=== PATIENT | male | born 1980 | race Two or more races ===

== ENCOUNTER 2017-03-12 19:48 | Emergency (ER) | payer SELFPAY ==
[~2017-03-12] VITALS: Ht 157.5 cm; Wt 63.5 kg
[2017-03-12] MEDS ORDERED: IV NORMAL SALINE 1000ML BAG 1,000 ML IV SCH (20:08)
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
[2017-03-12 20:23] LABS: BASO # 0.1 x10^3/uL (0.0-0.2); BASO % 1 % (0-3); EOS % 3 % (0-3); HEMATOCRIT 44.3 % (39.0-53.0); HEMOGLOBIN 15.4 g/dL (13.0-17.5); LYMPH % 40 % (24-48); MEAN CORPUSCULAR HEMOGLOBIN 32 pg (25-35); MEAN CORPUSCULAR HGB CONC 35 g/dL (31-37); MEAN CORPUSCULAR VOLUME 92 fL (79-100); MONO % 6 % (0-9); NEUT % 51 % (31-73); PLATELET COUNT 242 x10^3/uL (140-400); RED BLOOD COUNT 4.81 x10^6/uL (4.30-5.70); RED CELL DISTRIBUTION WIDTH 13.3 % (11.5-14.5); WHITE BLOOD COUNT 7.6 x10^3/uL (4.0-11.0)
[2017-03-12 20:33] LABS: BILIRUBIN,URINE NEGATIVE (NEG); GLUCOSE,URINE NEGATIVE (NEG); NITRITE,URINE NEGATIVE (NEG); PH,URINE 5.5; PROTEIN,URINE NEGATIVE (NEG-TRACE); UROBILINOGEN,URINE 0.2 mg/dL (0.2 mg/dL)
[2017-03-12 20:37] LABS: CALCIUM 8.6 mg/dL (8.5-10.1); CREATININE 0.9 mg/dL (0.7-1.3); POTASSIUM 3.8 mmol/L (3.5-5.1)
[2017-03-12 20:40] LABS: BARBITURATES NEG (NEG); BENZODIAZEPINES NEG (NEG); CANNABINOIDS POS (NEG); COCAINE NEG (NEG); METHADONE NEG (NEG); OPIATES NEG (NEG); PHENCYCLIDINE NEG (NEG)
[2017-03-12 20:41] LABS: BACTERIA,URINE 0 /HPF (0-FEW); RBC,URINE 0 /HPF (0-2); SQUAMOUS EPITHELIAL CELL,UR OCC /LPF
[2017-03-12 20:41] LABS: ETHANOL 18 mg/dL (0-10)
[2017-03-12 20:42] LABS: ALBUMIN 3.5 g/dL (3.4-5.0); TOTAL BILIRUBIN 0.2 mg/dL (0.2-1.0); TOTAL PROTEIN 7.1 g/dL (6.4-8.2)
[2017-03-12 21:38] VITALS: BP 139/94
--- NOTE | 2017-03-12 22:30 | ACF ---
Admission Forms Criteria [facility] Clinical Indications for Admission to Inpatient Care (Place 'X' for any and all applicable criteria): Hospital admission is needed for appropriate care of the patient because of ANY ONE of the following[A] (3)(4)(5): [ ]I. Inpatient behavioral care is needed as indicated by ALL of the following: [ ]a) Treatment is needed because of patient risk due to ANY ONE of the following: [ ]i) Imminent danger to self due to ANY ONE of the following ( 7)(8): [ ]1) Imminent risk for recurrence of a suicide attempt or act of serious self-harm as indicated by ALL of the following: [ ]A. Very recent suicide attempt or deliberate act of serious self-harm [ ]B. Absence of sufficient relief of the action' s precipitants [ ]2) Current plan for suicide or serious self-harm [ ]3) Persistent thoughts of suicide or serious self- harm that cannot be adequately monitored at a lower level of care because of ANY ONE of the following: [ ]A. Insufficient behavioral care provider availability [ ]B. Inadequate patient support system [ ]C. Patient characteristics such as high impulsivity or unreliability [ ]D. Ruminative flooding; uncontrollable and overwhelming profusion of negative thoughts [ ]E. Frantic hopelessness; fatalistic conviction that life will not improve along with oppressive sense of entrapment and doom [ ]F. Active substance use disorder is present [ ]G. Ready access to lethal means is present [ ]ii) Imminent danger to others due to ANY ONE of the following( 10)(11): [ ]1) Imminent risk for recurrence of an attempt to seriously harm another as indicated by ALL of the following: [ ]A. Very recent attempt to seriously harm another [ ]B. Absence of sufficient relief of the action' s precipitants [ ]2) Current plan for homicide or seriously harming another [ ]3) Command auditory hallucination for serious self harm to self or others [ ]4) Persistent thoughts of homicide or seriously harming another that cannot be adequately monitored at a lower level of care because of ANY ONE of the following: [ ]A. Insufficient behavioral care provider availability [ ]B. Inadequate patient support system [ ]C. Patient characteristics such as high impulsivity or unreliability [ ]D. Active substance use disorder is present [ ]E. Ready access to lethal means is present [ ]iii) Behavioral health disorder is present with ALL of the following: (12)(16)(17)(18): [ ]1) Severe psychiatric or behavioral symptoms are present , including ANY ONE of the following: [ ]A. Hallucinations that are very bothersome to patient or are associated with severe pressure to respond to voices(17)(18) [ ]B. Delusions that are very bothersome to patient or are associated with severe pressure to act on beliefs(17)(18) [ ]C. Disorganized speech that is almost impossible to follow(17)(18) [ ]D. Motor behavior that is almost constantly abnormal or bizarre or catatonic(17)(18) [ ]E. Severe negative symptoms (eg, severe decrease in facial expression or self-initiated behavior)(17)(18) [ ]F. Severe sofía (eg, daily periods of extensive mood elevation or irritability)(19)(20)(21)(22) [ ]G. Severe depression (eg, daily symptoms of deep hopelessness)[C] [ ]H. Severe anxiety[D] [ ]I. Severe comorbid substance use disorder with inability to control use, intense withdrawal symptoms, or extreme negative impact on primary psychiatric disorder(2)(7)(25) [ ]J. Severe impairment in cognition, memory, judgment, or impulse control(26)(27) [ ]K. Severe impairment in behavior, including physical or verbal aggression, disruptive behaviors, or internal or external anger manifestations (eg, rumination or outbursts)(28) [ ]L. Other psychiatric symptoms which are acute or represent worsening over baseline (eg, hyperactivity, agitation, obsessions, or compulsions)(29)(30)(31) [ ]2) Severe dysfunction in daily living is present as indicated by ANY ONE of the following: [ ]A. Extreme deterioration in social interactions ( eg, threatening behaviors with little or no provocation) [ ]B. Complete withdrawal from all social interactions [ ]C. Complete neglect of self-care with associated impairment in physical status [ ]D. Extreme disruption in vegetative function (eg , life-sustaining functions such as eating) [ ]E. Complete inability to maintain any appropriate aspect of personal responsibility in any adult roles (eg, occupational, parental) [ ]b) Treatment situation and needs are appropriate for level as indicated by ANY ONE of the following(13)(16): [ ]i) Patient unwilling to participate voluntarily and requires treatment (eg, legal commitment) in an involuntary unit [ ]ii) Voluntary treatment at lower level not feasible (e.g., very short-term crisis intervention or residential care unavailable or unacceptable for patient condition) [ ]iii) Need for physical restraint, seclusion, or other involuntary control (e.g., actively violent patient and adequate clinical rapport cannot be established to control violence) (25) [ ]iv) [id number] medical or nursing care to address symptoms and initiate intervention is required; specific need has been identified [ ]II. Delirium as described by ANY ONE of the following (26)(27)(28): [ ]a) Delirium due to alcohol or sedative [B] withdrawal (16)(29)(30)( 31) [ ]b) Delirium of uncertain etiology that has not responded to appropriate treatment in emergency department or urgent care setting (32)(33) [ ]c) Delirium that prevents performance of a life-sustaining function (eg, feeding or hydrating oneself) (9) [ ]III. Administration of a somatic treatment that requires sgemsh-[id number] medical or nursing care because of a potential adverse physical effect or medical comorbidity(7) [ ]IV. Behavioral Health condition, symptom, or finding for which emergency and observation care have failed or are not considered appropriate The original [facility] content created by [employer] has been revised. The portions of the content which have been revised are identified through the use of italic text or in bold, and [facility] has neither reviewed nor approved the modified material. All other unmodified content is copyright [facility] [employer] [employer]. Please see references footnoted in the original [employer] [facility] edition 2016 KEVIN SANCHEZ Mar 12, 2017 22:29
--- NOTE | 2017-03-13 06:34 | EKG ---
[facility] [address] [place] [address] Test Date: 2017-03-12 Test Time: 20:22:38 Pat Name: VICTORIA HILL Department: Room: Gender: M [employer] Machine Operator: TW EMT : 1980 Requested By: NEHA JUAREZ Order Number: [id number] Reading MD: Jay Jay Knight Measurements Intervals [place] Rate: 90 P: 39 IN: 134 QRS: -19 QRSD: 96 T: 33 QT: 328 QTc: 405 Interpretive Statements SINUS RHYTHM Electronically Signed On 03-13-2017 8:37:48 CDT by Jay Jay Knight
== END 2017-03-12 22:50 | disposition home or self-care (01) ==
LOC: ER 19:48
DX: F32.9 Major depressive disorder, single episode, unspecified (principal); F10.10 Alcohol abuse, uncomplicated; F12.10 Cannabis abuse, uncomplicated; F15.10 Other stimulant abuse, uncomplicated; Z87.820 Personal history of traumatic brain injury
CPT/HCPCS: 36415; 80053; 80305; 80320; 81001; 85027; 93005; 96360; 99285; G6038; J7030; G0480; G0481; 80196

== ENCOUNTER 2021-07-06 03:52 | Emergency (ER) | payer SELFPAY ==
[~2021-07-06] VITALS: Ht 149.9 cm; Wt 72.7 kg
[2021-07-06 04:20] LABS: BASO % 1 % (0-3); EOS % 1 % (0-3); HEMATOCRIT 44.9 % (39.0-53.0); HEMOGLOBIN 15.5 g/dL (13.0-17.5); LYMPH # 1.1 x10^3/uL (1.0-4.8); LYMPH % 22 % (24-48); MEAN CORPUSCULAR HEMOGLOBIN 32 pg (25-35); MEAN CORPUSCULAR HGB CONC 35 g/dL (31-37); MEAN CORPUSCULAR VOLUME 92 fL (79-100); MONO # 0.8 x10^3/uL (0.0-1.1); MONO % 16 % (0-9); NEUT # 3.1 x10^3/uL (1.8-7.7); NEUT % 61 % (31-73); PLATELET COUNT 209 x10^3/uL (140-400); RED BLOOD COUNT 4.87 x10^6/uL (4.30-5.70); WHITE BLOOD COUNT 5.1 x10^3/uL (4.0-11.0)
[2021-07-06 04:26] LABS: BARBITURATES NEG (NEG); BENZODIAZEPINES NEG (NEG); CANNABINOIDS POS (NEG); COCAINE NEG (NEG); METHADONE NEG (NEG); OPIATES NEG (NEG); PHENCYCLIDINE NEG (NEG)
[2021-07-06 04:29] LABS: CALCIUM 8.8 mg/dL (8.5-10.1); GFR 83.2
[2021-07-06 04:30] LABS: AMPHETAMINE/METHAMPHETAMINE NEG (NEG)
[2021-07-06 04:35] LABS: ALBUMIN 4.1 g/dL (3.4-5.0); TOTAL BILIRUBIN 0.1 mg/dL (0.2-1.0); TOTAL PROTEIN 8.1 g/dL (6.4-8.2)
--- NOTE | 2021-07-06 04:36 | PHYS DOC ---
Past Medical History Past Medical History: No Pertinent History Additional Past Medical Histor: TBI, BIPOLAR,PTSD (SANDRA RYAN DO) Past Surgical History: Other Additional Past Surgical Histo: traumatic brain (SANDRA RYAN DO) Smoking Status: Never Smoker Alcohol Use: Heavy Drug Use: Marijuana, Methamphetamine (SANDRA RYAN DO) General Adult EDM: Chief Complaint: SUICDAL IDEATION HPI: HPI: Patient is a 40 year old male who is a daily drinker presents with a chief complaint of suicidal ideation. Patient states he has been suicidal for 3 hours. States specific plan is to jump out in front of vehicular traffic. Patient states he is a daily drinker and did drink tonight. Patient states previous suicide attempts with psychiatric hospitalization. On exam patient is alert and oriented x4. He is clinically sober. Patient denies HI. (SANDRA RYAN DO) Review of Systems: Review of Systems: Constitutional: Denies fever or chills. [] Eyes: Denies change in visual acuity. [] HENT: Denies nasal congestion or sore throat. [] Respiratory: Denies cough or shortness of breath. [] Cardiovascular: Denies chest pain or edema. [] GI: Denies abdominal pain, nausea, vomiting, bloody stools or diarrhea. [] : Denies dysuria. [] Musculoskeletal: Denies back pain or joint pain. [] Integument: Denies rash. [] Neurologic: Denies headache, focal weakness or sensory changes. [] Endocrine: Denies polyuria or polydipsia. [] Lymphatic: Denies swollen glands. [] Psychiatric: Denies depression or anxiety. [Positive suicidal ideation denies homicidal ideation] (SANDRA RYAN DO) Heart Score: C/O Chest Pain: N/A Risk Factors: Risk Factors: DM, Current or recent (<one month) smoker, HTN, HLP, family history of CAD, obesity. Risk Scores: Score 0 - 3: 2.5% MACE over next 6 weeks - Discharge Home Score 4 - 6: 20.3% MACE over next 6 weeks - Admit for Clinical Observation Score 7 - 10: 72.7% MACE over next 6 weeks - Early Invasive Strategies (SHELBYSANDRA Lyman ) Allergies: Allergies: Allergies Coded Allergies Type Severity Reaction Last Updated Verified No Known Drug Allergies 03/12/17 No (SANDRA RYAN DO) Physical Exam: PE: General: alert, no acute distress. Skin: warm, dry and intact, no erythema, no rash. HENT: bilateral external ears normal, oropharynx moist, nose normal. Head:: Normocephalic, atraumatic. Neck: Trachea midline. Eyes: EOMI, Normal conjunctiva, No drainage CARDIOVASCULAR: Regular rate and rhythm RESPIRATORY: No respiratory distress Back: Full range of motion. MUSCULOSKELETAL: Full range of motion of bilateral upper and lower extremities. GASTROINTESTINAL: Abdomen soft without rebound or guarding. NEUROLOGICAL: Alert and noted to person, place and time. No neurological deficits observed Psychiatric: Cooperative. Suicidal ideation (SANDRA RYAN DO) Current Patient Data: Labs: Laboratory Tests Test 07/06/21 04:10 07/06/21 04:11 White Blood Count 5.1 x10^3/uL (4.0-11.0) Red Blood Count 4.87 x10^6/uL (4.30-5.70) Hemoglobin 15.5 g/dL (13.0-17.5) Hematocrit 44.9 % (39.0-53.0) Mean Corpuscular Volume 92 fL (79-100) Mean Corpuscular Hemoglobin 32 pg (25-35) Mean Corpuscular Hemoglobin Concent 35 g/dL (31-37) Red Cell Distribution Width 13.0 % (11.5-14.5) Platelet Count 209 x10^3/uL (140-400) Neutrophils (%) (Auto) 61 % (31-73) Lymphocytes (%) (Auto) 22 % (24-48) L Monocytes (%) (Auto) 16 % (0-9) H Eosinophils (%) (Auto) 1 % (0-3) Basophils (%) (Auto) 1 % (0-3) Neutrophils # (Auto) 3.1 x10^3/uL (1.8-7.7) Lymphocytes # (Auto) 1.1 x10^3/uL (1.0-4.8) Monocytes # (Auto) 0.8 x10^3/uL (0.0-1.1) Eosinophils # (Auto) 0.0 x10^3/uL (0.0-0.7) Basophils # (Auto) 0.0 x10^3/uL (0.0-0.2) Sodium Level 140 mmol/L (136-145) Potassium Level 4.0 mmol/L (3.5-5.1) Chloride Level 104 mmol/L (98-107) Carbon Dioxide Level 28 mmol/L (21-32) Anion Gap 8 (6-14) Blood Urea Nitrogen 8 mg/dL (8-26) Creatinine 1.0 mg/dL (0.7-1.3) Estimated GFR (Cockcroft-Gault) 83.2 BUN/Creatinine Ratio 8 (6-20) Glucose Level 95 mg/dL (70-99) Calcium Level 8.8 mg/dL (8.5-10.1) Total Bilirubin Pending Aspartate Amino Transferase (AST) Pending Alanine Aminotransferase (ALT) Pending Alkaline Phosphatase Pending Total Protein Pending Albumin Pending Albumin/Globulin Ratio Pending Ethyl Alcohol Level 206 mg/dL (0-10) H Urine Opiates Screen Neg (NEG) Urine Methadone Screen Neg (NEG) Urine Barbiturates Neg (NEG) Urine Phencyclidine Screen Neg (NEG) Urine Amphetamine/Methamphetamine Neg (NEG) Urine Benzodiazepines Screen Neg (NEG) Urine Cocaine Screen Neg (NEG) Urine Cannabinoids Screen Pos (NEG) Urine Ethyl Alcohol Pos (NEG) Laboratory Tests 07/06/21 04:10 Laboratory Tests 07/06/21 04:10 Vital Signs: Vital Signs Date Time Temp Pulse Resp B/P (MAP) Pulse Ox O2 Delivery O2 Flow Rate FiO2 07/06/21 03:53 98.3 97 16 125/75 (109) 97 Room Air 98.3 (SANDRA RYAN DO) EKG: EKG: [] (SANDRA RYAN DO) Radiology/Procedures: Radiology/Procedures: [] (SANDRA RYAN DO) Course & Med Decision Making: Course & Med Decision Making Pertinent Labs and Imaging studies reviewed. (See chart for details) [] Patient was evaluated for chief complaint work-up consisted of laboratory analysis. Psychiatric assessment team consulted. 0600hrs--patient signed out to Dr Beard. Disposition pending labs and PAT assessment. (SANDRA RYAN DO) Course & Med Decision Making Concern for suicidal ideations in the setting of alcohol intoxication and marijuana use. Pt observed in ed for 4 hours. Upon sober reevaluation pt states "I drank too much and knew I was thinking poorly so I called 911." States he has been noncompliant with his Zoloft for the past month but has refills at the pharmacy, "I will refill them today." States he no longer wants to harm himself or jump out in traffic, that he has kids he wants to live for. States "I was too drunk." Patient was assessed by pat team and was referred to [facility] and [facility], with a safety plan. I encouraged patient to call 911 immediate ly if patient should have any further/recurring suicidal thoughts or plans, and patient states " no definitely." Patient has decision-making capacity with a steady gait. Will discharge home with strict ED return precautions were given for suicidal thoughts or plans or hallucinations. Encouraged urgent outpatient follow-up with PMD and psychiatry. Life-threatening processes were considered but are low suspicion at this time, given history, physical exam and ED workup. Pt was educated on all prescription medications and adverse effects. All patient's questions were answered and pt was stable at time of discharge. Life/limb-threatening differential includes but is not limited to, end organ damage/sepsis, trauma/abuse/neglect, neurologic deficit, alcohol/drug ingestion, toxidrome, suicidal/homicidal ideations plans or attempts, psychosis or mental illness resulting in self neglect and inability to care for self. I have spoken with the patient and/or caregivers. I explained the patient's condition, diagnoses and treatment plan based on the information available to me at this time. I have answered the patient and/or caregiver's questions and addressed any concerns. The patient and/or caregivers have a good understanding of patient's diagnosis, condition and treatment plan as can be expected at this point. Vital signs have been stable. Patient's condition is stable and appr opriate for discharge from the emergency department. Patient will pursue further outpatient evaluation with primary care physician or other designated or consulting physician as outlined in the discharge instructions. The patient and/or caregivers are agreeable to this plan of care and follow-up instructions have been explained in detail. The patient and/or caregivers have received these instructions in written form and have expressed an understanding of the discharge instructions. The patient and/or caregivers are aware that any significant change of condition or worsening of symptoms sh ould prompt immediate return to this or the closest emergency department or call to 911. (VOCYDNEY SHANNON Disclaimer: Vickie Disclaimer: This electronic medical record was generated, in whole or in part, using a voice recognition dictation system. (SANDRA RYAN DO) Departure Departure Impression: Primary Impression: Alcohol intoxication Additional Impression: Suicidal thoughts Disposition: 01 HOME / SELF CARE / HOMELESS Condition: STABLE Referrals: NO PCP (PCP) Follow-up with your primary care physician in 24 to 48 hours OR FOLLOW UP WITH FAMILY MEDICINE: [address], [address] [place] [address] Patient Instructions: Alcohol Intoxication, Suicidal Feelings, How to Help Yourself Additional Instructions: FOLLOW UP WITH PSYCHIATRY: FOR DEFINITIVE MANAGEMENT Dr. Marcelo West Psychiatry Specialist [address] [place], [place] [address] [facility] AND FOR SUBSTANCE ABUSE MANAGEMENT [address] [place] [address] 24-hour crisis line: [phone] EMERGENCY DEPARTMENT GENERAL DISCHARGE INSTRUCTIONS Thank you for coming to [facility] Emergency Department (ED) today and trusting us with you care. We trust that you had a positive experience in our Emergency Department. If you wish to speak to the department management, you may call the Director at [phone]. YOUR FOLLOW UP INSTRUCTIONS ARE FOLLOWS: 1. Do you have a private Doctor? If you do not have a private doctor, please ask for a resource list of physicians or clinics that may be able to assist you with follow up care. ADDITIONAL INSTRUCTIONS AND INFORMATION: 1. Your care today has been supervised by a physician who is specially trained in emergency care. Many problems require more than one evaluation for a complete diagnosis and treatment. We recommend that you schedule your follow up appointment as re commended to ensure complete treatment of you illness or injury. If you are unable to obtain follow up care and continue to have a problem, or if your condition worsens, we recommend that you return to the ED. 2. We are not able to safely determine your condition over the phone nor are we able to give sound medical advice over the phone. For these safety reasons, if you call for medical advice we will ask you to come to the ED for further evaluation. 3. If you have any questions regarding these discharge instructions please call the ED at [phone]. SAFETY INFORMATION: In the interest of safety, wellness, and injury prevention; we encourage you to wear your sealbelt, if you smoke; quite smoking, and we encourage family to use a protective helmet for bicycling and other sporting events that present an increased risk for head injury. IF YOUR SYMPTOMS WORSEN OR NEW SYMPTOMS DEVELOP, OR YOU HAVE CONCERNS ABOUT YOUR CONDITION; OR IF YOUR CONDITION WORSENS WHILE YOU ARE WAITING FOR YOUR FOLLOW UP APPOINTMENT; EITHER CONTACT YOUR PRIMARY CARE DOCTOR, THE PHYSICIAN WHOSE NAME AND NUMBER YOU WERE GIVEN, OR RETURN TO THE ED IMMEDIATELY. SANDRA RYAN I DO Jul 06, 2021 04:36 CYDNEY BEARD DO Jul 06, 2021 08:00
[2021-07-06 08:15] VITALS: BP 128/69
== END 2021-07-06 09:11 | disposition home or self-care (01) ==
LOC: ER 03:52
DX: R45.851 Suicidal ideations (principal); F10.229 Alcohol dependence with intoxication, unspecified; Y90.7 Blood alcohol level of 200-239 mg/100 ml; F31.9 Bipolar disorder, unspecified; F43.10 Post-traumatic stress disorder, unspecified
CPT/HCPCS: 36415; 80053; 80307; 85025; 99285; G0480

== ENCOUNTER 2021-09-29 18:46 | Emergency (ER) | payer SELFPAY | END 2021-09-29 19:30 | disposition left against medical advice (07) | LOC: ER 18:46 | DX: R11.2 Nausea with vomiting, unspecified (principal); R19.7 Diarrhea, unspecified; R53.1 Weakness; Z53.21 Procedure and treatment not carried out due to patient leaving prior to being seen by health care provider ==

== ENCOUNTER 2022-02-01 23:20 | Emergency (ER) | payer SELFPAY ==
[~2022-02-01] VITALS: Ht 149.9 cm; Wt 65.5 kg
--- NOTE | 2022-02-01 23:37 | PHYS DOC ---
Past Medical History Past Medical History: No Pertinent History Additional Past Medical Histor: TBI, BIPOLAR,PTSD Past Surgical History: Other Additional Past Surgical Histo: traumatic brain Smoking Status: Never Smoker Alcohol Use: Heavy Drug Use: Marijuana, Methamphetamine General Adult EDM: Chief Complaint: SUICDAL IDEATION HPI: HPI: Patient is a 41 year old male who presents here with report of suicidal thoughts. He admits to drinking alcohol, he admits to the frequent use of cocaine, methamphetamine, LSD and marijuana. He normally lives in [facility], but he apparently walked here to [facility] in [facility]. He previously had been in with a friend, but he is now homeless. He does not divulge any details regarding why this is occurred. He is requesting food and drink. He denies any physical pain or discomfort. He denies headache, dizziness, chest pain, dyspnea, abdominal pain, nausea, vomiting. He denies headache, cough, congestion. He has been fully vaccinated against COVID-19. He denies fevers or chills. He denies homicidal ideation. He denies hallucinations. He reports that he has been using drugs and alcohol, almost daily, for many years. He reports being previously hospitalized for suicidal thoughts. He is unable to articulate where he may have been hospitalized or treated for these issues. He reports that he is supposed to take multiple psychotropic medications, but he has not been taking these for many months. He does not currently have a primary care physician or psychiatrist. Review of Systems: Review of Systems: Constitutional: Denies fever or chills. [] HENT: Denies nasal congestion or sore throat. [] Respiratory: Denies cough or shortness of breath. [] Cardiovascular: Denies chest pain or edema. [] GI: Denies abdominal pain, nausea, vomiting : Denies dysuria. [] Musculoskeletal: Denies back pain or joint pain. [] Integument: Denies rash. [] Neurologic: Denies headache, focal weakness or sensory changes. [] Psychiatric: Depression, polysubstance use, suicidal ideation. Denies homicidal ideation. Heart Score: C/O Chest Pain: No Risk Factors: Risk Factors: DM, Current or recent (<one month) smoker, HTN, HLP, family history of CAD, obesity. Risk Scores: Score 0 - 3: 2.5% MACE over next 6 weeks - Discharge Home Score 4 - 6: 20.3% MACE over next 6 weeks - Admit for Clinical Observation Score 7 - 10: 72.7% MACE over next 6 weeks - Early Invasive Strategies Allergies: Allergies: Allergies Coded Allergies Type Severity Reaction Last Updated Verified No Known Drug Allergies 03/12/17 No Physical Exam: PE: Constitutional: Well developed, well nourished, no acute distress, non-toxic appearance. Mildly disheveled. He is not ill-appearing. HENT: Normocephalic, atraumatic, oropharynx is patent and clear. Mucous membranes are moist. TMs are clear bilaterally. Nares are patent. Eyes: PERRL, EOMI, conjunctiva normal, no discharge. No scleral icterus. No evidence of periorbital or orbital trauma or injury. Neck: Normal range of motion, no tenderness, supple, no stridor. Trachea is midline. Cardiovascular:Heart rate regular rhythm, +2 radial pulses bilaterally Lungs & Thorax: Lungs are clear to auscultation bilaterally without rales, rhonchi or wheezes Abdomen: Abdomen is soft, nondistended, nontender to palpation. Skin: Warm, dry, no erythema, no rash. No open wounds. No laceration. No jaundice. Back: No tenderness, no CVA tenderness. Full painless range of motion. No deformity or step-offs Extremities: No tenderness, no cyanosis, no clubbing, ROM intact, no edema. No limb deformity. No calf tenderness. Neurologic: Alert and oriented X 3, normal motor function, normal sensory function, no focal deficits noted. Ambulatory with a steady gait. Psychologic: Affect is somewhat flat, he is cooperative, he smiles and is relatively jovial, denies homicidal ideation. Alludes to suicidal ideation. EKG: EKG: [] Radiology/Procedures: Radiology/Procedures: [] Course & Med Decision Making: Course & Med Decision Making Pertinent Labs and Imaging studies reviewed. (See chart for details) The patient was seen and evaluated by PAT team. [facility] was contacted, he is accepted there for drug and alcohol use and mental health evaluation. The patient is comfortable with the plan for transfer there. He is medically stable at this time. He has been calm and cooperative. He is given food and drink. Arrangements for transfer are made. [employer] Disclaimer: Vickie Disclaimer: This electronic medical record was generated, in whole or in part, using a voice recognition dictation system. Departure Departure Impression: Primary Impression: Polysubstance abuse Additional Impressions: Suicidal thoughts Mood disorder Disposition: [facility] ([facility]) Condition: STABLE Referrals: NO PCP (PCP) Patient Instructions: Depression, Adult, Mood Disorders, Polysubstance Abuse Additional Instructions: Please go to [facility] and participate in their drug and alcohol rehabilitation services and mental health services. Return to the ER if you are acutely injured, sustained any trauma, develop chest pain, shortness of breath, Alphonso pain, vomiting, weakness, or for any other concerns. PRANAV MORRIS DO Feb 01, 2022 23:37
[2022-02-02 00:05] LABS: BILIRUBIN,URINE NEGATIVE (NEG); CLARITY,URINE CLEAR; COLOR,URINE YELLOW; NITRITE,URINE NEGATIVE (NEG); PH,URINE 6.5 (<5.0-8.0); PROTEIN,URINE NEGATIVE (NEG-TRACE); UROBILINOGEN,URINE 0.2 mg/dL (0.2 mg/dL)
[2022-02-02 00:06] LABS: BACTERIA,URINE 0 /HPF (0-FEW); RBC,URINE 0 /HPF (0-2); WBC,URINE 0 /HPF (0-4)
[2022-02-02 00:10] LABS: AMPHETAMINE/METHAMPHETAMINE POS (NEG); BARBITURATES NEG (NEG); BENZODIAZEPINES NEG (NEG); CANNABINOIDS POS (NEG); COCAINE NEG (NEG); METHADONE NEG (NEG); OPIATES NEG (NEG); PHENCYCLIDINE NEG (NEG)
[2022-02-02 00:25] LABS: BASO # 0.1 x10^3/uL (0.0-0.2); BASO % 1 % (0-3); EOS # 0.1 x10^3/uL (0.0-0.7); EOS % 2 % (0-3); HEMATOCRIT 42.9 % (39.0-53.0); HEMOGLOBIN 14.3 g/dL (13.0-17.5); LYMPH # 2.4 x10^3/uL (1.0-4.8); LYMPH % 40 % (24-48); MEAN CORPUSCULAR HEMOGLOBIN 31 pg (25-35); MEAN CORPUSCULAR HGB CONC 33 g/dL (31-37); MEAN CORPUSCULAR VOLUME 94 fL (79-100); MONO # 0.5 x10^3/uL (0.0-1.1); MONO % 8 % (0-9); NEUT # 2.9 x10^3/uL (1.8-7.7); NEUT % 49 % (31-73); PLATELET COUNT 232 x10^3/uL (140-400); RED BLOOD COUNT 4.57 x10^6/uL (4.30-5.70)
[2022-02-02 00:35] LABS: CALCIUM 8.3 mg/dL (8.5-10.1); GFR 82.8; POTASSIUM 3.7 mmol/L (3.5-5.1)
[2022-02-02 00:40] LABS: ACETAMIN < 2 mcg/ml (10-30); ETHANOL 110 mg/dL (0-10)
[2022-02-02 02:00] VITALS: BP 122/77
== END 2022-02-02 01:58 | disposition short-term general hospital (02) ==
LOC: ER 23:20
DX: R45.851 Suicidal ideations (principal); Z20.822 Contact with and (suspected) exposure to COVID-19; F31.9 Bipolar disorder, unspecified; F43.10 Post-traumatic stress disorder, unspecified; Z87.820 Personal history of traumatic brain injury
CPT/HCPCS: 80048; 80307; 80329; 81001; 85025; 87426; 99285; C9803; G0480; U0003

== ENCOUNTER 2022-02-28 02:02 | Emergency (ER) | payer SELFPAY ==
[~2022-02-28] VITALS: Ht 154.9 cm; Wt 70.5 kg
[2022-02-28] MEDS ORDERED: ONDANSETRON PF 4 MG/2 ML VIAL. IVP ONE (02:30)
[2022-02-28] MEDS ORDERED: KETOROLAC 15 MG/ML VIAL. IVP ONE (02:30)
[2022-02-28] MEDS ORDERED: IV NORMAL SALINE 1000ML BAG 1,000 ML IV ONE ×2 (02:30→03:30)
--- NOTE | 2022-02-28 02:37 | PHYS DOC ---
Past Medical History Past Medical History: No Pertinent History Additional Past Medical Histor: psych history with SI (BOY VILLASENOR MD) Past Surgical History: Other Additional Past Surgical Histo: traumatic brain (BOY VILLASENOR MD) Smoking Status: Never Smoker Alcohol Use: Heavy Drug Use: Marijuana, Methamphetamine (BOY VILLASENOR MD) Adult General Chief Complaint Chief Complaint: MULTIPLE COMPLAINTS HPI HPI The patient is a 41-year-old male with a history of bipolar disorder and polysubstance use. Until 2 days ago he was staying with a girlfriend but she threw him out after an argument and he is now homeless and has been staying in the [facility]. He left his psych medicines at his girlfriend's house and has not dave d them for a couple of days. He presents to the emergency department for not feeling well and being cold and not having any place to go. States he drank alcohol last night and threw up this morning and feels a little nauseated still. Otherwise denies specific complaints. Does admit to smoking what he was told was "K2" a little earlier in the evening. Tachycardic here; other vital signs are entirely appropriate. He is alert and oriented x4, pleasantly appropriately interactive, not clinically intoxicated and in no acute distress, ambulatory with a narrow, steady gait to ED bed 6. (BOY VILLASENOR MD) Review of Systems Review of Systems A 12 point review of systems was completed and was negative except where noted in HPI above. (BOY VILLASENOR MD) Current Medications Current Medications Current Medications Medications (Trade) Dose Ordered Sig/Obey Start Time Stop Time Status Last Admin Dose Admin Ketorolac Tromethamine (Toradol 15mg Vial) 15 mg 1X ONCE 02/28/22 02:30 02/28/22 02:31 DC 02/28/22 02:52 15 MG Ondansetron HCl (Zofran) 4 mg 1X ONCE 02/28/22 02:30 02/28/22 02:31 DC 02/28/22 02:51 4 MG Sodium Chloride 1,000 ml @ 1,000 mls/hr 1X ONCE 02/28/22 03:30 02/28/22 04:29 DC 02/28/22 04:00 1,000 MLS/HR (ANA CAMPBELL DO) Allergies Allergies Allergies Coded Allergies Type Severity Reaction Last Updated Verified No Known Drug Allergies 03/12/17 No (ANA CAMPBELL DO) Physical Exam Physical Exam 41-year-old male appearing nontoxic and in no acute distress. Head is normocephalic and atraumatic. Neck is supple and nontender. No neck stiffness/rigidity/meningismus seen and patient ranges neck fully in all dimensions without discomfort or distress. Kernig's and Brudzinski's sign are negative. Oropharynx is moist. Lungs are clear to auscultation at all stations. There is a normal S1 and S2 without rubs or gallops and capillary refill is appropriate, less than 2 seconds globally. There is a tachycardic, regular rhythm. Abdomen is soft, nontender and nondistended without pulsatile mass. Skin is warm and dry without cyanosis, clubbing or edema. Psychiatrically, the patient demonstrates appropriate mood and affect and is alert. Neurologically, patient moves all extremities equally, is alert and oriented x4 no lateralizing deficits are seen. Evaluation of the extremities reveals BUEs and BLEs neurovascularly intact distally with strength however to 5, sensation intact light touch in all nerve distributions, radial, DP and PT pulses 2+ and equal bilaterally, capillary refill less than 2 seconds, hands and feet warm and well-perfused. No dependent peripheral edema distally. No calf tenderness or swelling bilaterally. Homans test is negative bilaterally. There is evidence of a healing paronychia to the left great toe, lateral aspect of the nailbed, which patient states he had I&Ded at [facility] 2 days ago. (BOY VILLASENOR MD) Current Patient Data Vital Signs Vital Signs Date Time Temp Pulse Resp B/P (MAP) Pulse Ox O2 Delivery O2 Flow Rate FiO2 02/28/22 04:45 130 18 147/84 (105) 97 Room Air 02/28/22 02:10 98.5 98.5 (ANA CAMPBELL DO) Lab Values Laboratory Tests Test 02/28/22 02:40 02/28/22 02:45 02/28/22 03:53 White Blood Count 9.2 x10^3/uL (4.0-11.0) Red Blood Count 4.47 x10^6/uL (4.30-5.70) Hemoglobin 14.1 g/dL (13.0-17.5) Hematocrit 40.9 % (39.0-53.0) Mean Corpuscular Volume 91 fL (79-100) Mean Corpuscular Hemoglobin 32 pg (25-35) Mean Corpuscular Hemoglobin Concent 35 g/dL (31-37) Red Cell Distribution Width 12.9 % (11.5-14.5) Platelet Count 289 x10^3/uL (140-400) Neutrophils (%) (Auto) 80 % (31-73) H Lymphocytes (%) (Auto) 14 % (24-48) L Monocytes (%) (Auto) 6 % (0-9) Eosinophils (%) (Auto) 0 % (0-3) Basophils (%) (Auto) 1 % (0-3) Neutrophils # (Auto) 7.3 x10^3/uL (1.8-7.7) Lymphocytes # (Auto) 1.3 x10^3/uL (1.0-4.8) Monocytes # (Auto) 0.5 x10^3/uL (0.0-1.1) Eosinophils # (Auto) 0.0 x10^3/uL (0.0-0.7) Basophils # (Auto) 0.1 x10^3/uL (0.0-0.2) Sodium Level 135 mmol/L (136-145) L Potassium Level 4.0 mmol/L (3.5-5.1) Chloride Level 100 mmol/L (98-107) Carbon Dioxide Level 25 mmol/L (21-32) Anion Gap 10 (6-14) Blood Urea Nitrogen 18 mg/dL (8-26) Creatinine 1.0 mg/dL (0.7-1.3) Estimated GFR (Cockcroft-Gault) 82.8 BUN/Creatinine Ratio 18 (6-20) Glucose Level 112 mg/dL (70-99) H Calcium Level 9.5 mg/dL (8.5-10.1) Total Bilirubin 0.4 mg/dL (0.2-1.0) Aspartate Amino Transferase (AST) 17 U/L (15-37) Alanine Aminotransferase (ALT) 27 U/L (16-63) Alkaline Phosphatase 71 U/L (46-116) Total Protein 8.4 g/dL (6.4-8.2) H Albumin 4.2 g/dL (3.4-5.0) Albumin/Globulin Ratio 1.0 (1.0-1.7) Salicylates Level 0.9 mg/dL (2.8-20.0) L Salicylate Last Dose Date Unk Salicylate Last Dose Time Unk Acetaminophen Level < 2 mcg/ml (10-30) L Acetaminophen Last Dose Date Unk Acetaminophen Last Dose Time Unk Ethyl Alcohol Level < 10 mg/dL (0-10) Influenza Type A Antigen Negative (NEGATIVE) Influenza Type B Antigen Negative (NEGATIVE) SARS-CoV-2 Antigen (Rapid) Negative (NEGATIVE) Urine Opiates Screen Neg (NEG) Urine Methadone Screen Neg (NEG) Urine Barbiturates Neg (NEG) Urine Phencyclidine Screen Neg (NEG) Urine Amphetamine/Methamphetamine Pos (NEG) Urine Benzodiazepines Screen Neg (NEG) Urine Cocaine Screen Neg (NEG) Urine Cannabinoids Screen Neg (NEG) Urine Ethyl Alcohol Neg (NEG) Laboratory Tests 02/28/22 02:40 Laboratory Tests 02/28/22 02:40 (ANA CAMPBELL DO) Lab Values Laboratory Tests Test 02/28/22 02:40 02/28/22 02:45 02/28/22 03:53 White Blood Count 9.2 x10^3/uL (4.0-11.0) Red Blood Count 4.47 x10^6/uL (4.30-5.70) Hemoglobin 14.1 g/dL (13.0-17.5) Hematocrit 40.9 % (39.0-53.0) Mean Corpuscular Volume 91 fL (79-100) Mean Corpuscular Hemoglobin 32 pg (25-35) Mean Corpuscular Hemoglobin Concent 35 g/dL (31-37) Red Cell Distribution Width 12.9 % (11.5-14.5) Platelet Count 289 x10^3/uL (140-400) Neutrophils (%) (Auto) 80 % (31-73) H Lymphocytes (%) (Auto) 14 % (24-48) L Monocytes (%) (Auto) 6 % (0-9) Eosinophils (%) (Auto) 0 % (0-3) Basophils (%) (Auto) 1 % (0-3) Neutrophils # (Auto) 7.3 x10^3/uL (1.8-7.7) Lymphocytes # (Auto) 1.3 x10^3/uL (1.0-4.8) Monocytes # (Auto) 0.5 x10^3/uL (0.0-1.1) Eosinophils # (Auto) 0.0 x10^3/uL (0.0-0.7) Basophils # (Auto) 0.1 x10^3/uL (0.0-0.2) Sodium Level 135 mmol/L (136-145) L Potassium Level 4.0 mmol/L (3.5-5.1) Chloride Level 100 mmol/L (98-107) Carbon Dioxide Level 25 mmol/L (21-32) Anion Gap 10 (6-14) Blood Urea Nitrogen 18 mg/dL (8-26) Creatinine 1.0 mg/dL (0.7-1.3) Estimated GFR (Cockcroft-Gault) 82.8 BUN/Creatinine Ratio 18 (6-20) Glucose Level 112 mg/dL (70-99) H Calcium Level 9.5 mg/dL (8.5-10.1) Total Bilirubin 0.4 mg/dL (0.2-1.0) Aspartate Amino Transferase (AST) 17 U/L (15-37) Alanine Aminotransferase (ALT) 27 U/L (16-63) Alkaline Phosphatase 71 U/L (46-116) Total Protein 8.4 g/dL (6.4-8.2) H Albumin 4.2 g/dL (3.4-5.0) Albumin/Globulin Ratio 1.0 (1.0-1.7) Salicylates Level 0.9 mg/dL (2.8-20.0) L Salicylate Last Dose Date Unk Salicylate Last Dose Time Unk Acetaminophen Level < 2 mcg/ml (10-30) L Acetaminophen Last Dose Date Unk Acetaminophen Last Dose Time Unk Ethyl Alcohol Level < 10 mg/dL (0-10) Influenza Type A Antigen Negative (NEGATIVE) Influenza Type B Antigen Negative (NEGATIVE) SARS-CoV-2 Antigen (Rapid) Negative (NEGATIVE) Urine Opiates Screen Neg (NEG) Urine Methadone Screen Neg (NEG) Urine Barbiturates Neg (NEG) Urine Phencyclidine Screen Neg (NEG) Urine Amphetamine/Methamphetamine Pos (NEG) Urine Benzodiazepines Screen Neg (NEG) Urine Cocaine Screen Neg (NEG) Urine Cannabinoids Screen Neg (NEG) Urine Ethyl Alcohol Neg (NEG) Laboratory Tests 02/28/22 02:40 Laboratory Tests 02/28/22 02:40 (BOY VILLASENOR MD) EKG EKG Sinus rhythm, right bundle branch block, rate 127, no acute ST elevation or depression, IA 132, QRS 130, QTc 456, EP interpretation. Nonischemic tracing, intervals appropriate. (BOY VILLASENOR MD) Radiology/Procedures Radiology/Procedures [] (BOY VILLASENOR MD) Course & Med Decision Making Course & Med Decision Making Given tachycardia, will check basic labs, toxicology studies, EKG and will give IV fluids, Zofran and Toradol as noted and will then reevaluate. If work-up is reassuring, will explore discharge to [facility], to which patient is amenable. 0600: Heart rate much, much better after IV fluids. Labs unremarkable. Urine tox screen positive for methamphetamines, likely explaining the patient's presenting tachycardia. Resting comfortably in bed. PAT team called for assessment, plan to discharge to [facility] if possible. Transition of care at this time to Dr. Campbell. (BOY VILLASENOR MD) Course & Med Decision Making Case was endorsed to me from awaiting the PET team for assessment for possible discharge to [facility]. Patient was believed for evaluation but eloped. (ANA CAMPBELL DO) Dragon Disclaimer Dragon Disclaimer This electronic medical record was generated, in whole or in part, using a voice recognition dictation system. (BOY VILLASENOR MD) Departure Departure Impression: Primary Impression: Methamphetamine abuse Additional Impression: Homelessness Condition: STABLE Referrals: NO PCP (PCP) Problem Qualifiers BOY VILLASENOR MD Feb 28, 2022 02:37 ANA CAMPBELL DO Feb 28, 2022 09:23
[2022-02-28 02:49] LABS: BASO # 0.1 x10^3/uL (0.0-0.2); BASO % 1 % (0-3); EOS % 0 % (0-3); HEMATOCRIT 40.9 % (39.0-53.0); HEMOGLOBIN 14.1 g/dL (13.0-17.5); LYMPH # 1.3 x10^3/uL (1.0-4.8); LYMPH % 14 % (24-48); MEAN CORPUSCULAR HEMOGLOBIN 32 pg (25-35); MEAN CORPUSCULAR HGB CONC 35 g/dL (31-37); MEAN CORPUSCULAR VOLUME 91 fL (79-100); MONO # 0.5 x10^3/uL (0.0-1.1); MONO % 6 % (0-9); NEUT # 7.3 x10^3/uL (1.8-7.7); NEUT % 80 % (31-73); PLATELET COUNT 289 x10^3/uL (140-400); RED BLOOD COUNT 4.47 x10^6/uL (4.30-5.70); RED CELL DISTRIBUTION WIDTH 12.9 % (11.5-14.5); WHITE BLOOD COUNT 9.2 x10^3/uL (4.0-11.0)
[2022-02-28 02:55] LABS: CALCIUM 9.5 mg/dL (8.5-10.1); GFR 82.8
[2022-02-28 02:58] LABS: ACETAMIN < 2 mcg/ml (10-30); ETHANOL < 10 mg/dL (0-10); SALIC 0.9 mg/dL (2.8-20.0)
[2022-02-28 03:00] LABS: ALBUMIN 4.2 g/dL (3.4-5.0); TOTAL BILIRUBIN 0.4 mg/dL (0.2-1.0); TOTAL PROTEIN 8.4 g/dL (6.4-8.2)
[2022-02-28 03:11] LABS: INFLUENZA A PATIENT NEGATIVE (NEGATIVE); INFLUENZA B PATIENT NEGATIVE (NEGATIVE)
[2022-02-28 04:09] LABS: AMPHETAMINE/METHAMPHETAMINE POS (NEG); BARBITURATES NEG (NEG); BENZODIAZEPINES NEG (NEG); CANNABINOIDS NEG (NEG); COCAINE NEG (NEG); METHADONE NEG (NEG); OPIATES NEG (NEG); PHENCYCLIDINE NEG (NEG)
--- NOTE | 2022-02-28 07:39 | EKG ---
[facility] [address] [place] [address] Test Date: 2022-02-28 Test Time: 02:40:00 Pat Name: VICTORIA HILL Department: Room: Gender: M Event Staff Member: : 1980 Requested By: ANA CAMPBELL Order Number: [id number] Reading MD: Carson Mchugh Measurements Intervals [place] Rate: 127 P: 52 [place]: 132 QRS: -67 QRSD: 130 T: 31 QT: 310 QTc: 456 Interpretive Statements SINUS TACHYCARDIA ABNORMAL LEFT AXIS DEVIATION AXIS ABNORMAL CONSIDERING AGE POSSIBLE LEFT ATRIAL ABNORMALITY LEFT ANTERIOR FASCICULAR BLOCK RIGHT BUNDLE BRANCH BLOCK BIFASCICULAR BLOCK ABNORMAL ECG Electronically Signed On 03-01-2022 13:21:20 CDT by Carson Mchugh
[2022-02-28 08:45] VITALS: BP 122/79
== END 2022-02-28 09:21 | disposition left against medical advice (07) ==
LOC: ER 02:02
DX: F15.10 Other stimulant abuse, uncomplicated (principal); Z59.00 Homelessness unspecified; Z20.822 Contact with and (suspected) exposure to COVID-19; F31.9 Bipolar disorder, unspecified; R00.0 Tachycardia, unspecified
CPT/HCPCS: 36415; 80053; 80307; 80329; 85025; 87428; 93005; 96361; 96374; 96375; 99285; C9803; G0480; J1885; J2405; J7030; U0003

== ENCOUNTER 2022-03-03 15:24 | Emergency (ER) | payer SELFPAY ==
[~2022-03-03] VITALS: Ht 165.1 cm; Wt 68.1 kg
--- NOTE | 2022-03-03 16:32 | NUR ---
PABLO FROM P.A.T. PAGED AT [phone] AND PABLO RETURNED PAGE AT [phone].
[2022-03-03 16:40] VITALS: BP 131/104
[2022-03-03 17:14] LABS: BASO # 0.1 x10^3/uL (0.0-0.2); BASO % 1 % (0-3); EOS # 0.3 x10^3/uL (0.0-0.7); EOS % 4 % (0-3); HEMATOCRIT 38.8 % (39.0-53.0); LYMPH # 1.8 x10^3/uL (1.0-4.8); LYMPH % 21 % (24-48); MEAN CORPUSCULAR HEMOGLOBIN 31 pg (25-35); MEAN CORPUSCULAR HGB CONC 34 g/dL (31-37); MEAN CORPUSCULAR VOLUME 92 fL (79-100); MONO # 0.7 x10^3/uL (0.0-1.1); MONO % 9 % (0-9); NEUT # 5.6 x10^3/uL (1.8-7.7); NEUT % 66 % (31-73); PLATELET COUNT 262 x10^3/uL (140-400); RED BLOOD COUNT 4.22 x10^6/uL (4.30-5.70); RED CELL DISTRIBUTION WIDTH 12.8 % (11.5-14.5); WHITE BLOOD COUNT 8.5 x10^3/uL (4.0-11.0)
[2022-03-03 17:23] LABS: CALCIUM 9.1 mg/dL (8.5-10.1); CREATININE 1.3 mg/dL (0.7-1.3); GFR 61.1; POTASSIUM 4.5 mmol/L (3.5-5.1)
[2022-03-03 17:27] LABS: ACETAMIN 3.31 mcg/ml (10-30); ETHANOL < 10 mg/dL (0-10); SALIC 0.4 mg/dL (2.8-20.0)
[2022-03-03 17:29] LABS: ALBUMIN 3.5 g/dL (3.4-5.0); ALBUMIN/GLOBULIN RATIO 0.9 (1.0-1.7); TOTAL BILIRUBIN 0.4 mg/dL (0.2-1.0); TOTAL PROTEIN 7.5 g/dL (6.4-8.2)
[2022-03-03 17:31] LABS: BARBITURATES NEG (NEG); BENZODIAZEPINES NEG (NEG); CANNABINOIDS POS (NEG); COCAINE NEG (NEG); METHADONE NEG (NEG); OPIATES NEG (NEG); PHENCYCLIDINE NEG (NEG)
[2022-03-03 17:37] LABS: AMPHETAMINE/METHAMPHETAMINE POS (NEG)
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
[2022-03-03 18:08] LABS: INFLUENZA A PATIENT NEGATIVE (NEGATIVE); INFLUENZA B PATIENT NEGATIVE (NEGATIVE)
== END 2022-03-03 21:19 | disposition home or self-care (01) ==
LOC: ER 15:24 → EEVIPCON 15:24 → ER 21:19
DX: R45.851 Suicidal ideations (principal); Z20.822 Contact with and (suspected) exposure to COVID-19; Z87.891 Personal history of nicotine dependence; F10.20 Alcohol dependence, uncomplicated; Y90.0 Blood alcohol level of less than 20 mg/100 ml
CPT/HCPCS: 36415; 80053; 80307; 80329; 85025; 87428; 99285; C9803; G0480; U0003

== ENCOUNTER 2022-03-24 02:43 | Emergency (ER) | payer MEDICAID ==
[~2022-03-24] VITALS: Ht 154.9 cm; Wt 68.2 kg
[2022-03-24 03:10] LABS: AMPHETAMINE/METHAMPHETAMINE NEG (NEG); BARBITURATES NEG (NEG); BENZODIAZEPINES NEG (NEG); CANNABINOIDS NEG (NEG); COCAINE NEG (NEG); METHADONE NEG (NEG); OPIATES NEG (NEG); PHENCYCLIDINE NEG (NEG)
[2022-03-24 03:25] LABS: BACTERIA,URINE 0 /HPF (0-FEW); RBC,URINE 0 /HPF (0-2); WBC,URINE OCC /HPF (0-4)
[2022-03-24] MEDS ORDERED: MULTIVIT INFUSN,ADULT 4,VIT K 10 ML, THIAMINE INJ 100 MG, FOLIC ACID INJ 1 MG in IV NOR... IV ONE (03:30)
[2022-03-24 03:35] LABS: BASO % 1 % (0-3); EOS # 0.1 x10^3/uL (0.0-0.7); EOS % 2 % (0-3); HEMATOCRIT 41.4 % (39.0-53.0); HEMOGLOBIN 14.3 g/dL (13.0-17.5); LYMPH # 2.7 x10^3/uL (1.0-4.8); LYMPH % 42 % (24-48); MEAN CORPUSCULAR HEMOGLOBIN 32 pg (25-35); MEAN CORPUSCULAR HGB CONC 35 g/dL (31-37); MEAN CORPUSCULAR VOLUME 92 fL (79-100); MONO # 0.5 x10^3/uL (0.0-1.1); MONO % 7 % (0-9); NEUT # 3.1 x10^3/uL (1.8-7.7); NEUT % 49 % (31-73); PLATELET COUNT 282 x10^3/uL (140-400); RED BLOOD COUNT 4.48 x10^6/uL (4.30-5.70); RED CELL DISTRIBUTION WIDTH 12.7 % (11.5-14.5); WHITE BLOOD COUNT 6.5 x10^3/uL (4.0-11.0)
[2022-03-24 03:45] LABS: CALCIUM 8.8 mg/dL (8.5-10.1); CREATININE 0.8 mg/dL (0.7-1.3); GFR 107.1; POTASSIUM 4.1 mmol/L (3.5-5.1)
[2022-03-24 03:52] LABS: ALBUMIN 3.7 g/dL (3.4-5.0); ALBUMIN/GLOBULIN RATIO 0.8 (1.0-1.7); MAGNESIUM 2.1 mg/dL (1.8-2.4); TOTAL BILIRUBIN 0.2 mg/dL (0.2-1.0); TOTAL PROTEIN 8.1 g/dL (6.4-8.2)
--- NOTE | 2022-03-24 03:56 | PHYS DOC ---
Past Medical History Past Medical History: Alcoholism, Depression Additional Past Medical Histor: SUICIDAL IDEATION (JUSTIN SHELBY DO) Additional Past Surgical Histo: traumatic brain (JUSTIN SHELBY DO) Smoking Status: Current Every Day Smoker Alcohol Use: Heavy Drug Use: Marijuana, Methamphetamine (JUSTIN SHELBY DO) General Adult EDM: Chief Complaint: SUICDAL IDEATION HPI: HPI: 41-year-old male presents via EMS with report of suicidal ideation. Patient was transported with female friend who also stated suicidal ideation. Patient reports he planned on "walking into traffic". Patient reports he also has been drinking tonight. Patient reports he typically drinks a sixpack and a pint of hard liquor daily. Patient denies issues with withdrawal seizures. Patient recently was evaluated at and underwent inpatient psychiatric admission. Reports that was approximately 1 to 2 weeks ago. Patient was supposed to be set up with outpatient psychiatric services however patient has not been able to set up an appointment yet. History of present illness limited secondary to alcohol intoxication. (JUSTIN SHELBY DO) Review of Systems: Review of Systems: Constitutional: Denies fever Musculoskeletal: Denies neck pain Integument: Denies laceration Neurologic: Denies headache Review of systems limited secondary to alcohol intoxication. (JUSTIN SHELBY DO) Heart Score: C/O Chest Pain: N/A (JUSTIN SHELBY DO) Current Medications: Current Medications Medications (Trade) Dose Ordered Sig/Obey Start Time Stop Time Status Last Admin Dose Admin Multivitamins 10 ml/Thiamine HCl 100 mg/Folic Acid 1 mg/Sodium Chloride 1,011.2 ml @ 1,000.088 mls/hr 1X ONCE 03/24/22 03:30 03/24/22 04:30 03/24/22 03:16 1,000.088 MLS/HR (JUSTIN SHELBY DO) Allergies: Allergies: Allergies Coded Allergies Type Severity Reaction Last Updated Verified No Known Drug Allergies 03/12/17 No (JUSTIN SHELBY DO) Physical Exam: PE: Constitutional: Well developed, well nourished, intoxicated, non-toxic appearance HENT: Normocephalic, atraumatic Eyes: PERRL, EOMI, conjunctiva mildly injected bilaterally, no discharge, horizontal nystagmus noted Neck: Normal range of motion, supple Lungs & Thorax: No respiratory distress, equal chest rise and fall Abdomen: Soft, no tenderness Skin: Warm, dry, no erythema, no rash Extremities: No tenderness, ROM intact Neurologic: Alert and oriented X 3, no focal deficits noted Psychologic: Affect flat, judgment abnormal, reports suicidal ideation (JUSTIN SHELBY DO) Current Patient Data: Labs: Laboratory Tests Test 03/24/22 02:58 03/24/22 03:13 03/24/22 03:20 Urine Collection Type Unknown Urine Color (Auto) Light yellow Urine Turbidity Clear Urine pH (Auto) 5.0 (<5.0-8.0) Urine Specific Schwertner 1.018 (1.000-1.030) Urine Protein (Auto) Negative mg/dL (Negative) Urine Glucose (Auto)(UA) Negative mg/dL (Negative) Urine Ketones (Auto) Negative mg/dL (Negative) Urine Blood (Auto) Negative (Negative) Urine Nitrite Negative (Negative) Urine Bilirubin (Auto) Negative (Negative) Urine Urobilinogen (Auto) Normal mg/dL (Normal) Urine Leukocyte Esterase (Auto) Negative (Negative) Urine RBC 0 /HPF (0-2) Urine WBC Occ /HPF (0-4) Urine Squamous Epithelial Cells Few /LPF Urine Bacteria 0 /HPF (0-FEW) Urine Mucus Mod /LPF Urine Opiates Screen Neg (NEG) Urine Methadone Screen Neg (NEG) Urine Barbiturates Neg (NEG) Urine Phencyclidine Screen Neg (NEG) Urine Amphetamine/Methamphetamine Neg (NEG) Urine Benzodiazepines Screen Neg (NEG) Urine Cocaine Screen Neg (NEG) Urine Cannabinoids Screen Neg (NEG) Urine Ethyl Alcohol Pos (NEG) White Blood Count 6.5 x10^3/uL (4.0-11.0) Red Blood Count 4.48 x10^6/uL (4.30-5.70) Hemoglobin 14.3 g/dL (13.0-17.5) Hematocrit 41.4 % (39.0-53.0) Mean Corpuscular Volume 92 fL (79-100) Mean Corpuscular Hemoglobin 32 pg (25-35) Mean Corpuscular Hemoglobin Concent 35 g/dL (31-37) Red Cell Distribution Width 12.7 % (11.5-14.5) Platelet Count 282 x10^3/uL (140-400) Neutrophils (%) (Auto) 49 % (31-73) Lymphocytes (%) (Auto) 42 % (24-48) Monocytes (%) (Auto) 7 % (0-9) Eosinophils (%) (Auto) 2 % (0-3) Basophils (%) (Auto) 1 % (0-3) Neutrophils # (Auto) 3.1 x10^3/uL (1.8-7.7) Lymphocytes # (Auto) 2.7 x10^3/uL (1.0-4.8) Monocytes # (Auto) 0.5 x10^3/uL (0.0-1.1) Eosinophils # (Auto) 0.1 x10^3/uL (0.0-0.7) Basophils # (Auto) 0.0 x10^3/uL (0.0-0.2) Sodium Level 143 mmol/L (136-145) Potassium Level 4.1 mmol/L (3.5-5.1) Chloride Level 106 mmol/L (98-107) Carbon Dioxide Level 28 mmol/L (21-32) Anion Gap 9 (6-14) Blood Urea Nitrogen 9 mg/dL (8-26) Creatinine 0.8 mg/dL (0.7-1.3) Estimated GFR (Cockcroft-Gault) 107.1 BUN/Creatinine Ratio 11 (6-20) Glucose Level 100 mg/dL (70-99) H Calcium Level 8.8 mg/dL (8.5-10.1) Magnesium Level 2.1 mg/dL (1.8-2.4) Total Bilirubin 0.2 mg/dL (0.2-1.0) Aspartate Amino Transferase (AST) 11 U/L (15-37) L Alanine Aminotransferase (ALT) 19 U/L (16-63) Alkaline Phosphatase 70 U/L (46-116) Total Protein 8.1 g/dL (6.4-8.2) Albumin 3.7 g/dL (3.4-5.0) Albumin/Globulin Ratio 0.8 (1.0-1.7) L Ethyl Alcohol Level 133 mg/dL (0-10) H SARS-CoV-2 Antigen (Rapid) Negative (NEGATIVE) Laboratory Tests 03/24/22 03:13 Laboratory Tests 03/24/22 03:13 Vital Signs: Vital Signs Date Time Temp Pulse Resp B/P (MAP) Pulse Ox O2 Delivery O2 Flow Rate FiO2 03/24/22 02:44 97.2 91 20 125/87 (100) 100 Room Air 97.2 (JUSTIN SHELBY DO) EKG: EKG: @0328 NSR at 84bpm, NO ST elevation, QRS 78ms, QT/QTc 378/450ms. RBBB (JUSTIN SHELBY DO) Radiology/Procedures: Radiology/Procedures: [] (JUSTIN SHELBY DO) Course & Med Decision Making: Course & Med Decision Making Pertinent Lab studies reviewed. (See chart for details) Patient presents via EMS with report of suicidal ideation. Patient also with alcohol intoxication. Patient reports history of recent psychiatric admission. Reports has not yet been able to set up an appointment for outpatient mental health. Patient had plan this evening to hurt himself. Patient also presents with a female friend who also reports suicidal ideation. EKG stable. Labs obtained and posted to chart. EtOH 133. Banana bag provided. Denies history of delirium tremens. Patient observed in department until clinically sober. Psychiatric assessment team evaluation performed. Recommendation for patient to be tentatively discharged to [facility]. 0600- Sign out given to Dr. Damon for further evaluation and final disposition. (JUSTIN SHELBY DO) Course & Med Decision Making Patient was accepted at [facility]. Will be discharged accordingly and sent by transportation over there for clearance. (EFREN DAMON MD) Dragon Disclaimer: Dragon Disclaimer: This electronic medical record was generated, in whole or in part, using a voice recognition dictation system. (JUSTIN SHELBY DO) Departure Departure Impression: Primary Impression: Suicidal ideation Additional Impression: Alcohol intoxication Qualified Codes: F10.920 - Alcohol use, unspecified with intoxication, uncomplicated [facility] Condition: STABLE Referrals: NO PCP (PCP) Patient Instructions: Alcohol Intoxication, [id number], Alcohol, FAQs, Suicidal Feelings, How to Help Yourself JUSTIN SHELBY DO March 24, 2022 03:56 EFREN DAMON MD March 24, 2022 15:37
--- NOTE | 2022-03-24 06:01 | EKG ---
[facility] [address] [place] [address] Test Date: 2022-03-24 Test Time: 03:28:26 Pat Name: VICTORIA HILL Department: Room: Gender: M Planning Official: [id number] : 1980 Requested By: JUSTIN SHELBY Order Number: [id number] Reading MD: Jay Jay Knight MD Measurements Intervals Gaston Rate: 84 P: 36 WA: 154 QRS: -14 QRSD: 78 T: 6 QT: 378 QTc: 450 Interpretive Statements SINUS RHYTHM RBBB Electronically Signed On 03-25-2022 8:52:47 CDT by Jay Jay Knight MD
--- NOTE | 2022-03-24 08:20 | NUR ---
Per Nilo LANDIN request, food tray ordered for pt.
[2022-03-24 12:22] VITALS: BP 136/74
== END 2022-03-24 15:38 ==
LOC: ER 02:43
DX: R45.851 Suicidal ideations (principal); F10.229 Alcohol dependence with intoxication, unspecified; F17.200 Nicotine dependence, unspecified, uncomplicated; F32.9 Major depressive disorder, single episode, unspecified; Z20.822 Contact with and (suspected) exposure to COVID-19; Y90.6 Blood alcohol level of 120-199 mg/100 ml
CPT/HCPCS: 80053; 80307; 81001; 83735; 85025; 87426; 93005; 96365; 96366; 99285; G0480; J3411; J3490; J7030; U0003